=== PATIENT | female | born 1950 | race Two or more races ===

== ENCOUNTER 2021-05-08 07:35 | Emergency (ER) | payer OTHER ==
[2021-05-08 07:55] VITALS: BP 141/94; PULSE 80; TEMP 98.4; BMI 28.0
[2021-05-08] MEDS ORDERED: FUROSEMIDE 40 MG/4 ML INJECTABLE VIAL IVPUSH ONE (09:11)
[2021-05-08] MEDS ORDERED: FUROSEMIDE 40 MG TABLET (FP) PO ONE (09:12)
[2021-05-08] MEDS ORDERED: FUROSEMIDE 40 MG TABLET (FP) ONE (09:17)
[2021-05-08 10:41] LABS: EOS % 1.3 % (0-4.5); HEMATOCRIT 44.2 % (32.4-45.2); HEMOGLOBIN 14.4 GM/dL (10.7-15.3); LYMPH % 48.2 % (8-40); MCH 30.3 pg (25.7-33.7); MCHC 32.5 g/dl (32.0-36.0); MEAN PLT VOLUME 10.1 fl (7.5-11.1); MONO % 10.6 % (3.8-10.2); NEUT % 38.9 % (42.8-82.8); PLATELET COUNT 222 10^3/uL (134-434); RBC 4.75 M/mm3 (3.60-5.2); RDW 13.6 % (11.6-15.6); WHITE BLOOD COUNT 3.8 K/mm3 (4.0-10.0)
[2021-05-08 11:04] LABS: CALCIUM 9.5 mg/dL (8.5-10.1)
[2021-05-08 11:05] LABS: ALBUMIN 4.1 g/dl (3.4-5.0); BLOOD UREA NITROGEN 11.7 mg/dL (7-18); MAGNESIUM 2.1 mg/dL (1.8-2.4)
[2021-05-08 11:08] LABS: CREATININE 0.9 mg/dL (0.55-1.3)
[2021-05-08 11:09] LABS: EPI CELLS >36 /uL (0-25.1); HYALINE CASTS 3 /uL (0-3.1); PH,URINE 6.5 (5.0-8.0); URINE APPEARANCE CLOUDY; URINE BACTERIA 2070 /uL (0-1359); URINE BILIRUBIN NEGATIVE (NEGATIVE); URINE COLOR YELLOW; URINE GLUCOSE (UA) NEGATIVE (NEGATIVE); URINE KETONE TRACE (NEGATIVE); URINE LEUK ESTERASE 2+ (NEGATIVE); URINE NITRITE NEGATIVE (NEGATIVE); URINE PROTEIN TRACE (NEGATIVE); URINE WBC 148 /uL (0-25.8)
[2021-05-08 11:10] LABS: BILIRUBIN,TOTAL 2.5 mg/dL (0.2-1); TOT PROT 7.6 g/dl (6.4-8.2)
[2021-05-08 11:12] LABS: N-TERMINAL BNP 45.9 pg/ml (5-125)
[2021-05-08 11:16] LABS: URINE RBC 28.4 /uL (0-23.9)
== END 2021-05-08 11:53 | disposition home or self-care (01) ==
LOC: JER 07:35
DX: R22.43 Localized swelling, mass and lump, lower limb, bilateral (principal)
CPT/HCPCS: 80053; 81003; 82550; 82553; 83735; 83880; 84484; 85025; 87086; 87186; 93005; 93010; 99285-25; C9803; U0003; U0005

== ENCOUNTER 2021-09-01 21:46 | Inpatient (IN) | payer OTHER ==
[2021-09-01 23:55] LABS: BASO % 0.6 % (0-2.0); EOS % 0.3 % (0-4.5); HEMATOCRIT 41.9 % (32.4-45.2); HEMOGLOBIN 14.2 GM/dL (10.7-15.3); LYMPH % 5.5 % (8-40); MCH 31.4 pg (25.7-33.7); MEAN CELL VOLUME 92.3 fl (80-96); MEAN PLT VOLUME 9.8 fl (7.5-11.1); MONO % 12.1 % (3.8-10.2); NEUT % 81.5 % (42.8-82.8); PLATELET COUNT 170 10^3/uL (134-434); RBC 4.54 M/mm3 (3.60-5.2); RDW 14.1 % (11.6-15.6); WHITE BLOOD COUNT 7.1 K/mm3 (4.0-10.0)
[2021-09-02 00:14] LABS: ALBUMIN 3.9 g/dl (3.4-5.0); CALCIUM 9.8 mg/dL (8.5-10.1)
[2021-09-02 00:15] LABS: BLOOD UREA NITROGEN 16.2 mg/dL (7-18)
[2021-09-02 00:17] LABS: CREATININE 0.9 mg/dL (0.55-1.3)
[2021-09-02 00:18] LABS: BILIRUBIN,TOTAL 2.1 mg/dL (0.2-1); TOT PROT 7.5 g/dl (6.4-8.2)
[2021-09-02] MEDS ORDERED: ACETAMINOPHEN 1000 MG/100 ML BAG IVPB ONE (00:37)
[2021-09-02] MEDS ORDERED: ACETAMINOPHEN INJECTION 100 ML IVPB ONE (01:03)
[2021-09-02] MEDS ORDERED: ASPIRIN 81 MG CHEWABLE TABLETS PO ONE (04:15)
[2021-09-02] MEDS ORDERED: BEBTELOVIMAB (EUA) 175 MG/2 ML VIAL IVPUSH ONE (04:19)
[2021-09-02] MEDS ORDERED: ASPIRIN 81 MG CHEWABLE TABLETS ONE (04:24)
[2021-09-02 05:36] LABS: ACTIVATED PTT 30.7 SECONDS (25.2-36.5); INR 1.13 (0.83-1.09)
[2021-09-02 07:35] LABS: BASO % 0.8 % (0-2.0); EOS % 0.2 % (0-4.5); HEMATOCRIT 38.8 % (32.4-45.2); HEMOGLOBIN 12.8 GM/dL (10.7-15.3); LYMPH % 15.6 % (8-40); MCH 30.6 pg (25.7-33.7); MCHC 33.1 g/dl (32.0-36.0); MEAN CELL VOLUME 92.6 fl (80-96); MEAN PLT VOLUME 10.8 fl (7.5-11.1); MONO % 7.5 % (3.8-10.2); NEUT % 75.9 % (42.8-82.8); PLATELET COUNT 157 10^3/uL (134-434); RBC 4.19 M/mm3 (3.60-5.2); RDW 14.3 % (11.6-15.6); WHITE BLOOD COUNT 4.3 K/mm3 (4.0-10.0)
[2021-09-02] MEDS: INSULIN SLIDING SCALE (NOVOLOG) 1 VIAL SQ SCH ×4 (08:00→22:17)
[2021-09-02 08:06] LABS: BLOOD UREA NITROGEN 15.8 mg/dL (7-18); CALCIUM 9.1 mg/dL (8.5-10.1)
[2021-09-02 08:07] LABS: ALBUMIN 3.5 g/dl (3.4-5.0)
[2021-09-02 08:10] LABS: CREATININE 0.8 mg/dL (0.55-1.3); MAGNESIUM 1.9 mg/dL (1.8-2.4)
[2021-09-02 08:12] LABS: BILIRUBIN,TOTAL 2.1 mg/dL (0.2-1); TOT PROT 6.6 g/dl (6.4-8.2)
[2021-09-02 09:25] LABS: EPI CELLS >36 /uL (0-25.1); HYALINE CASTS 4 /uL (0-3.1); URINE APPEARANCE CLOUDY; URINE BACTERIA 3807 /uL (0-1359); URINE BILIRUBIN NEGATIVE (NEGATIVE); URINE COLOR YELLOW; URINE GLUCOSE (UA) NEGATIVE (NEGATIVE); URINE KETONE NEGATIVE (NEGATIVE); URINE LEUK ESTERASE TRACE (NEGATIVE); URINE NITRITE NEGATIVE (NEGATIVE); URINE PROTEIN 1+ (NEGATIVE); URINE WBC 167 /uL (0-25.8)
[2021-09-02] MEDS ORDERED: PATIENT'S OWN MEDICATION (NON-FORMULARY) (Dorzolamide Hcl/Timolol Maleat [Dorzolamide-Timo OU SCH (10:00)
[2021-09-02 10:29] LABS: URINE RBC 58 /uL (0-23.9)
[2021-09-02] MEDS ORDERED: SODIUM CHLORIDE 1,000 ML IV SCH (10:30)
[2021-09-02] MEDS: ENOXAPARIN NA (PORCINE) 40 MG/0.4 ML DISP.SYRIN SQ SCH (13:00)
[2021-09-02] MEDS: TIMOLOL 0.5% OPHTHALMIC SOL 5 ML BOTTLE OU SCH ×2 (13:00→22:12)
[2021-09-02] MEDS: BRIMONIDINE TARTRATE 0.15% OPHTHALMIC 5 ML BOTTLE OU SCH ×2 (13:00→22:12)
[2021-09-02] MEDS: GABAPENTIN 300 MG CAPSULE PO SCH (13:00)
[2021-09-02] MEDS ORDERED: hydrALAZINE HCL 50 MG TABLET (FP) ONE (13:13)
[2021-09-02] MEDS ORDERED: LOSARTAN POTASSIUM 50 MG TABLET ONE (13:13)
[2021-09-02] MEDS ORDERED: GABAPENTIN 300 MG CAPSULE ONE (13:13)
[2021-09-02] MEDS ORDERED: ENOXAPARIN NA (PORCINE) 40 MG/0.4 ML DISP.SYRIN SQ ONE (13:13)
[2021-09-02] MEDS ORDERED: amLODIPine BESYLATE 5 MG TABLET (FP) ONE (13:13)
[2021-09-02] MEDS: LOSARTAN POTASSIUM 50 MG TABLET PO SCH (13:56)
[2021-09-02] MEDS: hydrALAZINE HCL 50 MG TABLET (FP) PO SCH (13:56)
[2021-09-02] MEDS: amLODIPine BESYLATE 10 MG TABLET (FP) PO SCH (13:57)
[2021-09-02] MEDS: DORZOLAMIDE 2% HCL OPHTHALMIC SOLUTION 10 ML BOTTLE OU SCH ×2 (13:58→22:12)
[2021-09-02] MEDS ORDERED: REMDESIVIR 200 MG in SODIUM CHLORIDE 250 ML IVPB ONE (17:30)
[2021-09-02] MEDS ORDERED: DEXAMETHASONE SOD PHOSPHATE 10 MG/1 ML VIAL ONE (17:53)
[2021-09-02] MEDS: SODIUM CHLORIDE 1,000 ML IV SCH (18:00)
[2021-09-02] MEDS: DEXAMETHASONE SOD PHOSPHATE 10 MG/1 ML VIAL IVPUSH SCH (18:00)
[2021-09-03] MEDS: ROSUVASTATIN CA 20 MG TABLET PO SCH ×2 (00:03→22:00)
[2021-09-03 00:38] VITALS: BMI 27.1
[2021-09-03] MEDS: INSULIN SLIDING SCALE (NOVOLOG) 1 VIAL SQ SCH ×4 (06:26→22:06)
[2021-09-03 08:18] LABS: BASO % 0.3 % (0-2.0); HEMATOCRIT 39.7 % (32.4-45.2); HEMOGLOBIN 13.2 GM/dL (10.7-15.3); LYMPH % 25.8 % (8-40); MCH 30.9 pg (25.7-33.7); MCHC 33.1 g/dl (32.0-36.0); MEAN CELL VOLUME 93.3 fl (80-96); MEAN PLT VOLUME 10.3 fl (7.5-11.1); MONO % 4.4 % (3.8-10.2); NEUT % 69.5 % (42.8-82.8); PLATELET COUNT 152 10^3/uL (134-434); RBC 4.26 M/mm3 (3.60-5.2); RDW 13.9 % (11.6-15.6); WHITE BLOOD COUNT 4.9 K/mm3 (4.0-10.0)
[2021-09-03 09:00] LABS: ALBUMIN 3.2 g/dl (3.4-5.0); BILIRUBIN,TOTAL 1.6 mg/dL (0.2-1); CALCIUM 8.7 mg/dL (8.5-10.1); CREATININE 0.7 mg/dL (0.55-1.3); TOT PROT 6.3 g/dl (6.4-8.2)
[2021-09-03] MEDS: BRIMONIDINE TARTRATE 0.15% OPHTHALMIC 5 ML BOTTLE OU SCH ×2 (09:01→22:06)
[2021-09-03] MEDS: DEXAMETHASONE SOD PHOSPHATE 10 MG/1 ML VIAL IVPUSH SCH (09:01)
[2021-09-03] MEDS: GABAPENTIN 300 MG CAPSULE PO SCH (09:01)
[2021-09-03] MEDS: TIMOLOL 0.5% OPHTHALMIC SOL 5 ML BOTTLE OU SCH ×2 (09:01→22:07)
[2021-09-03] MEDS: DORZOLAMIDE 2% HCL OPHTHALMIC SOLUTION 10 ML BOTTLE OU SCH ×2 (09:01→22:07)
[2021-09-03] MEDS: ENOXAPARIN NA (PORCINE) 40 MG/0.4 ML DISP.SYRIN SQ SCH (09:01)
[2021-09-03 09:02] LABS: BILIRUBIN,DIRECT 0.4 mg/dL (0.0-0.2); PHOSPHOROUS 3.8 mg/dL (2.5-4.9)
[2021-09-03] MEDS: REMDESIVIR 100 MG in SODIUM CHLORIDE 250 ML IVPB SCH (10:07)
[2021-09-03] MEDS: LOSARTAN POTASSIUM 50 MG TABLET PO SCH (10:08)
[2021-09-03] MEDS: amLODIPine BESYLATE 10 MG TABLET (FP) PO SCH (10:08)
[2021-09-03] MEDS: hydrALAZINE HCL 50 MG TABLET (FP) PO SCH ×2 (10:09→22:00)
[2021-09-03] MEDS: SODIUM CHLORIDE 1,000 ML IV SCH (17:15)
[2021-09-04] MEDS: INSULIN SLIDING SCALE (NOVOLOG) 1 VIAL SQ SCH (06:12)
[2021-09-04 08:25] LABS: BASO % 0.1 % (0-2.0); HEMATOCRIT 39.2 % (32.4-45.2); HEMOGLOBIN 13.5 GM/dL (10.7-15.3); LYMPH % 23.3 % (8-40); MCH 31.7 pg (25.7-33.7); MCHC 34.3 g/dl (32.0-36.0); MEAN CELL VOLUME 92.5 fl (80-96); MEAN PLT VOLUME 10.1 fl (7.5-11.1); MONO % 9.9 % (3.8-10.2); NEUT % 66.7 % (42.8-82.8); PLATELET COUNT 155 10^3/uL (134-434); RBC 4.24 M/mm3 (3.60-5.2); RDW 13.9 % (11.6-15.6); WHITE BLOOD COUNT 6.9 K/mm3 (4.0-10.0)
[2021-09-04 08:32] LABS: CALCIUM 8.8 mg/dL (8.5-10.1)
[2021-09-04 08:33] LABS: ALBUMIN 3.2 g/dl (3.4-5.0); BLOOD UREA NITROGEN 16.4 mg/dL (7-18); MAGNESIUM 2.2 mg/dL (1.8-2.4)
[2021-09-04 08:36] LABS: CREATININE 0.7 mg/dL (0.55-1.3); PHOSPHOROUS 3.2 mg/dL (2.5-4.9)
[2021-09-04 08:37] LABS: BILIRUBIN,TOTAL 1.1 mg/dL (0.2-1); TOT PROT 6.4 g/dl (6.4-8.2)
[2021-09-04] MEDS: SODIUM CHLORIDE 1,000 ML IV SCH ×2 (11:31→21:16)
[2021-09-04] MEDS: REMDESIVIR 100 MG in SODIUM CHLORIDE 250 ML IVPB SCH (11:31)
[2021-09-04] MEDS: DEXAMETHASONE SOD PHOSPHATE 10 MG/1 ML VIAL IVPUSH SCH (11:32)
[2021-09-04] MEDS: GABAPENTIN 300 MG CAPSULE PO SCH (11:32)
[2021-09-04] MEDS: LOSARTAN POTASSIUM 50 MG TABLET PO SCH (11:32)
[2021-09-04] MEDS: hydrALAZINE HCL 50 MG TABLET (FP) PO SCH ×2 (11:32→21:15)
[2021-09-04] MEDS: amLODIPine BESYLATE 10 MG TABLET (FP) PO SCH (11:32)
[2021-09-04] MEDS: ENOXAPARIN NA (PORCINE) 40 MG/0.4 ML DISP.SYRIN SQ SCH (11:33)
[2021-09-04] MEDS: DORZOLAMIDE 2% HCL OPHTHALMIC SOLUTION 10 ML BOTTLE OU SCH ×2 (11:34→21:21)
[2021-09-04] MEDS: TIMOLOL 0.5% OPHTHALMIC SOL 5 ML BOTTLE OU SCH ×2 (11:34→21:20)
[2021-09-04] MEDS: BRIMONIDINE TARTRATE 0.15% OPHTHALMIC 5 ML BOTTLE OU SCH ×2 (11:34→21:20)
[2021-09-04] MEDS ORDERED: ACETAMINOPHEN 325 MG TABLET (FP) PO PRN (20:57)
[2021-09-04] MEDS: ROSUVASTATIN CA 20 MG TABLET PO SCH (21:15)
[2021-09-05 07:58] LABS: BASO % 0.1 % (0-2.0); HEMATOCRIT 40.2 % (32.4-45.2); HEMOGLOBIN 13.9 GM/dL (10.7-15.3); LYMPH % 19.3 % (8-40); MCH 31.7 pg (25.7-33.7); MCHC 34.6 g/dl (32.0-36.0); MEAN CELL VOLUME 91.7 fl (80-96); MEAN PLT VOLUME 10.3 fl (7.5-11.1); MONO % 9.3 % (3.8-10.2); NEUT % 71.3 % (42.8-82.8); PLATELET COUNT 176 10^3/uL (134-434); RBC 4.39 M/mm3 (3.60-5.2); RDW 13.7 % (11.6-15.6); WHITE BLOOD COUNT 6.5 K/mm3 (4.0-10.0)
[2021-09-05 08:09] LABS: ALBUMIN 3.2 g/dl (3.4-5.0)
[2021-09-05 08:12] LABS: BLOOD UREA NITROGEN 14.6 mg/dL (7-18); CALCIUM 8.7 mg/dL (8.5-10.1); MAGNESIUM 2.2 mg/dL (1.8-2.4); PHOSPHOROUS 3.2 mg/dL (2.5-4.9)
[2021-09-05 08:15] LABS: CREATININE 0.6 mg/dL (0.55-1.3)
[2021-09-05 08:17] LABS: BILIRUBIN,TOTAL 1.3 mg/dL (0.2-1); TOT PROT 6.5 g/dl (6.4-8.2)
[2021-09-05] MEDS: DEXAMETHASONE SOD PHOSPHATE 10 MG/1 ML VIAL IVPUSH SCH (10:28)
[2021-09-05] MEDS: LOSARTAN POTASSIUM 50 MG TABLET PO SCH (10:29)
[2021-09-05] MEDS: hydrALAZINE HCL 50 MG TABLET (FP) PO SCH ×2 (10:29→21:45)
[2021-09-05] MEDS: amLODIPine BESYLATE 10 MG TABLET (FP) PO SCH (10:29)
[2021-09-05] MEDS: GABAPENTIN 300 MG CAPSULE PO SCH (10:29)
[2021-09-05] MEDS: ENOXAPARIN NA (PORCINE) 40 MG/0.4 ML DISP.SYRIN SQ SCH (10:29)
[2021-09-05] MEDS: SODIUM CHLORIDE 1,000 ML IV SCH ×2 (10:30→21:44)
[2021-09-05] MEDS: BRIMONIDINE TARTRATE 0.15% OPHTHALMIC 5 ML BOTTLE OU SCH ×2 (10:31→21:49)
[2021-09-05] MEDS: DORZOLAMIDE 2% HCL OPHTHALMIC SOLUTION 10 ML BOTTLE OU SCH ×2 (10:31→21:47)
[2021-09-05] MEDS: TIMOLOL 0.5% OPHTHALMIC SOL 5 ML BOTTLE OU SCH ×2 (10:31→21:47)
[2021-09-05] MEDS: REMDESIVIR 100 MG in SODIUM CHLORIDE 250 ML IVPB SCH (11:12)
[2021-09-05] MEDS: POLYETHYLENE GLYCOL (HEALTHYLAX) 3350 17 GM PACKET PO SCH (14:17)
[2021-09-05] MEDS: ROSUVASTATIN CA 20 MG TABLET PO SCH (21:45)
[2021-09-05] MEDS: SENNOSIDES 8.6MG TABLET (FP) PO SCH (21:45)
[2021-09-06 07:31] LABS: BASO % 0.2 % (0-2.0); HEMATOCRIT 42.5 % (32.4-45.2); HEMOGLOBIN 14.2 GM/dL (10.7-15.3); LYMPH % 21.5 % (8-40); MCH 30.9 pg (25.7-33.7); MCHC 33.5 g/dl (32.0-36.0); MEAN CELL VOLUME 92.1 fl (80-96); MEAN PLT VOLUME 10.7 fl (7.5-11.1); NEUT % 66.3 % (42.8-82.8); PLATELET COUNT 195 10^3/uL (134-434); RBC 4.61 M/mm3 (3.60-5.2); RDW 13.7 % (11.6-15.6); WHITE BLOOD COUNT 6.5 K/mm3 (4.0-10.0)
[2021-09-06 07:46] LABS: ALBUMIN 3.1 g/dl (3.4-5.0); CALCIUM 8.6 mg/dL (8.5-10.1)
[2021-09-06 07:49] LABS: CREATININE 0.7 mg/dL (0.55-1.3)
[2021-09-06 07:51] LABS: TOT PROT 6.4 g/dl (6.4-8.2)
[2021-09-06] MEDS: amLODIPine BESYLATE 10 MG TABLET (FP) PO SCH (10:10)
[2021-09-06] MEDS: POLYETHYLENE GLYCOL (HEALTHYLAX) 3350 17 GM PACKET PO SCH (10:10)
[2021-09-06] MEDS: LOSARTAN POTASSIUM 50 MG TABLET PO SCH (10:10)
[2021-09-06] MEDS: GABAPENTIN 300 MG CAPSULE PO SCH (10:10)
[2021-09-06] MEDS: hydrALAZINE HCL 50 MG TABLET (FP) PO SCH ×2 (10:10→21:48)
[2021-09-06] MEDS: DEXAMETHASONE SOD PHOSPHATE 10 MG/1 ML VIAL IVPUSH SCH (10:10)
[2021-09-06] MEDS: REMDESIVIR 100 MG in SODIUM CHLORIDE 250 ML IVPB SCH (10:10)
[2021-09-06] MEDS: DORZOLAMIDE 2% HCL OPHTHALMIC SOLUTION 10 ML BOTTLE OU SCH ×2 (10:10→21:49)
[2021-09-06] MEDS: TIMOLOL 0.5% OPHTHALMIC SOL 5 ML BOTTLE OU SCH ×2 (10:10→21:49)
[2021-09-06] MEDS: BRIMONIDINE TARTRATE 0.15% OPHTHALMIC 5 ML BOTTLE OU SCH ×2 (11:05→21:49)
[2021-09-06] MEDS: ENOXAPARIN NA (PORCINE) 40 MG/0.4 ML DISP.SYRIN SQ SCH (11:05)
[2021-09-06] MEDS: INSULIN SLIDING SCALE (NOVOLOG) 1 VIAL SQ SCH ×3 (12:24→21:55)
[2021-09-06] MEDS: ROSUVASTATIN CA 20 MG TABLET PO SCH (21:48)
[2021-09-06] MEDS: SENNOSIDES 8.6MG TABLET (FP) PO SCH (21:48)
[2021-09-07] MEDS: INSULIN SLIDING SCALE (NOVOLOG) 1 VIAL SQ SCH ×4 (06:11→21:56)
[2021-09-07 07:37] LABS: BASO % 0.1 % (0-2.0); EOS % 0.1 % (0-4.5); HEMATOCRIT 43.9 % (32.4-45.2); HEMOGLOBIN 14.5 GM/dL (10.7-15.3); LYMPH % 23.8 % (8-40); MCH 30.6 pg (25.7-33.7); MCHC 33.1 g/dl (32.0-36.0); MEAN CELL VOLUME 92.4 fl (80-96); MEAN PLT VOLUME 10.4 fl (7.5-11.1); MONO % 13.8 % (3.8-10.2); NEUT % 62.2 % (42.8-82.8); PLATELET COUNT 210 10^3/uL (134-434); RBC 4.75 M/mm3 (3.60-5.2); RDW 13.9 % (11.6-15.6); WHITE BLOOD COUNT 6.3 K/mm3 (4.0-10.0)
[2021-09-07 08:12] LABS: CALCIUM 9.1 mg/dL (8.5-10.1)
[2021-09-07 08:15] LABS: CREATININE 0.6 mg/dL (0.55-1.3)
[2021-09-07 08:17] LABS: TOT PROT 6.3 g/dl (6.4-8.2)
[2021-09-07] MEDS: BRIMONIDINE TARTRATE 0.15% OPHTHALMIC 5 ML BOTTLE OU SCH ×2 (10:12→21:45)
[2021-09-07] MEDS: TIMOLOL 0.5% OPHTHALMIC SOL 5 ML BOTTLE OU SCH ×2 (10:12→21:46)
[2021-09-07] MEDS: DORZOLAMIDE 2% HCL OPHTHALMIC SOLUTION 10 ML BOTTLE OU SCH ×2 (10:12→21:46)
[2021-09-07] MEDS: ENOXAPARIN NA (PORCINE) 40 MG/0.4 ML DISP.SYRIN SQ SCH (10:53)
[2021-09-07] MEDS: LOSARTAN POTASSIUM 50 MG TABLET PO SCH (10:53)
[2021-09-07] MEDS: hydrALAZINE HCL 50 MG TABLET (FP) PO SCH ×2 (10:54→21:45)
[2021-09-07] MEDS: amLODIPine BESYLATE 10 MG TABLET (FP) PO SCH (10:54)
[2021-09-07] MEDS: POLYETHYLENE GLYCOL (HEALTHYLAX) 3350 17 GM PACKET PO SCH (10:55)
[2021-09-07] MEDS: GABAPENTIN 300 MG CAPSULE PO SCH (10:55)
[2021-09-07] MEDS: DEXAMETHASONE SOD PHOSPHATE 10 MG/1 ML VIAL IVPUSH SCH (10:56)
[2021-09-07] MEDS: ROSUVASTATIN CA 20 MG TABLET PO SCH (21:45)
[2021-09-07] MEDS: SENNOSIDES 8.6MG TABLET (FP) PO SCH (21:45)
[2021-09-08] MEDS: INSULIN SLIDING SCALE (NOVOLOG) 1 VIAL SQ SCH ×4 (06:32→23:01)
[2021-09-08] MEDS: ENOXAPARIN NA (PORCINE) 40 MG/0.4 ML DISP.SYRIN SQ SCH (10:25)
[2021-09-08] MEDS: amLODIPine BESYLATE 10 MG TABLET (FP) PO SCH (10:25)
[2021-09-08] MEDS: GABAPENTIN 300 MG CAPSULE PO SCH (10:26)
[2021-09-08] MEDS: LOSARTAN POTASSIUM 50 MG TABLET PO SCH (10:26)
[2021-09-08] MEDS: hydrALAZINE HCL 50 MG TABLET (FP) PO SCH ×2 (10:26→22:38)
[2021-09-08] MEDS: DEXAMETHASONE SOD PHOSPHATE 10 MG/1 ML VIAL IVPUSH SCH (10:26)
[2021-09-08] MEDS: BRIMONIDINE TARTRATE 0.15% OPHTHALMIC 5 ML BOTTLE OU SCH ×2 (10:28→23:02)
[2021-09-08] MEDS: POLYETHYLENE GLYCOL (HEALTHYLAX) 3350 17 GM PACKET PO SCH (10:29)
[2021-09-08] MEDS: TIMOLOL 0.5% OPHTHALMIC SOL 5 ML BOTTLE OU SCH ×2 (10:30→23:01)
[2021-09-08] MEDS: DORZOLAMIDE 2% HCL OPHTHALMIC SOLUTION 10 ML BOTTLE OU SCH ×2 (10:30→23:02)
[2021-09-08] MEDS: ROSUVASTATIN CA 20 MG TABLET PO SCH (22:38)
[2021-09-08] MEDS: SENNOSIDES 8.6MG TABLET (FP) PO SCH (22:38)
[2021-09-09] MEDS: INSULIN SLIDING SCALE (NOVOLOG) 1 VIAL SQ SCH ×4 (08:00→21:44)
[2021-09-09] MEDS: POLYETHYLENE GLYCOL (HEALTHYLAX) 3350 17 GM PACKET PO SCH (10:42)
[2021-09-09] MEDS: DEXAMETHASONE SOD PHOSPHATE 10 MG/1 ML VIAL IVPUSH SCH (10:42)
[2021-09-09] MEDS: hydrALAZINE HCL 50 MG TABLET (FP) PO SCH ×2 (10:43→21:43)
[2021-09-09] MEDS: amLODIPine BESYLATE 10 MG TABLET (FP) PO SCH (10:43)
[2021-09-09] MEDS: LOSARTAN POTASSIUM 50 MG TABLET PO SCH (10:43)
[2021-09-09] MEDS: GABAPENTIN 300 MG CAPSULE PO SCH (10:43)
[2021-09-09] MEDS: BRIMONIDINE TARTRATE 0.15% OPHTHALMIC 5 ML BOTTLE OU SCH ×2 (11:00→21:46)
[2021-09-09] MEDS: TIMOLOL 0.5% OPHTHALMIC SOL 5 ML BOTTLE OU SCH ×2 (11:00→21:44)
[2021-09-09] MEDS: DORZOLAMIDE 2% HCL OPHTHALMIC SOLUTION 10 ML BOTTLE OU SCH ×2 (11:05→21:44)
[2021-09-09] MEDS: ASCORBIC ACID 250 MG TABLET (FP) PO SCH (15:00)
[2021-09-09] MEDS: ZINC SULFATE 220 MG CAPSULE (FP) PO SCH (15:00)
[2021-09-09 16:26] LABS: SARS-CoV-2 NAA Detected (Not Detected)
[2021-09-09] MEDS: ROSUVASTATIN CA 20 MG TABLET PO SCH (21:43)
[2021-09-09] MEDS: SENNOSIDES 8.6MG TABLET (FP) PO SCH (21:43)
[2021-09-10] MEDS: INSULIN SLIDING SCALE (NOVOLOG) 1 VIAL SQ SCH ×3 (06:04→17:50)
[2021-09-10] MEDS ORDERED: BISACODYL 10 MG SUPP.RECT PR ONE (08:30)
[2021-09-10] MEDS: BRIMONIDINE TARTRATE 0.15% OPHTHALMIC 5 ML BOTTLE OU SCH (10:01)
[2021-09-10] MEDS: TIMOLOL 0.5% OPHTHALMIC SOL 5 ML BOTTLE OU SCH (10:01)
[2021-09-10] MEDS: DORZOLAMIDE 2% HCL OPHTHALMIC SOLUTION 10 ML BOTTLE OU SCH (10:02)
[2021-09-10] MEDS: GABAPENTIN 300 MG CAPSULE PO SCH (10:50)
[2021-09-10] MEDS: POLYETHYLENE GLYCOL (HEALTHYLAX) 3350 17 GM PACKET PO SCH (10:50)
[2021-09-10] MEDS: LOSARTAN POTASSIUM 50 MG TABLET PO SCH (10:50)
[2021-09-10] MEDS: amLODIPine BESYLATE 10 MG TABLET (FP) PO SCH (10:51)
[2021-09-10] MEDS: ZINC SULFATE 220 MG CAPSULE (FP) PO SCH (10:51)
[2021-09-10] MEDS: ASCORBIC ACID 250 MG TABLET (FP) PO SCH (10:51)
[2021-09-10] MEDS: hydrALAZINE HCL 50 MG TABLET (FP) PO SCH (10:51)
[2021-09-10 20:02] VITALS: BP 122/74; PULSE 91; TEMP 98.5
== END 2021-09-10 20:00 | DRG 177 ==
LOC: JER 21:46 → JERBED 09-02 01:43 → J4W 09-02 23:37
PROVIDERS: ADMIT Hospitalist; ATTEND Internal Medicine
PROC: XW033E5 Introduction of Remdesivir Anti-infective into Peripheral Vein, Percutaneous Approach, New Technology Group 5 (ICD-10-PCS; principal; 2021-09-02)
DX: U07.1 COVID-19 (principal); J12.82 Pneumonia due to coronavirus disease 2019; I24.8 Other forms of acute ischemic heart disease; M62.82 Rhabdomyolysis; R78.81 Bacteremia; G20 Parkinson's disease; I10 Essential (primary) hypertension; E78.5 Hyperlipidemia, unspecified; H40.9 Unspecified glaucoma
CPT/HCPCS: 0241U-QW; 36415; 71045-TC-FY; 80053; 81003; 82248; 82550; 82553; 82728; 82962; 83036; 83605; 83615; 83735; 84100; 84443; 84484; 85025; 85379; 85610; 85730; 86140; 86850; 86900; 86901; 87040; 87086; 87186; 93005; 93010; 94761; 97116-GP; 97162-GP; 99285-25; C9399; C9803-CS; J1100; Q0222; U0003; U0005

== ENCOUNTER 2022-02-09 10:47 | Inpatient (IN) | payer OTHER ==
[2022-02-09] MEDS ORDERED: VANCOMYCIN 1 GM in D5W (PRE-DOCKED) 1,000 MG/250 ML IVPB ONE (13:40)
[2022-02-09 14:24] LABS: BASO % 1.1 % (0-2.0); EOS % 1.8 % (0-4.5); HEMATOCRIT 41.3 % (32.4-45.2); HEMOGLOBIN 13.8 GM/dL (10.7-15.3); LYMPH % 26.1 % (8-40); MCH 30.8 pg (25.7-33.7); MCHC 33.5 g/dl (32.0-36.0); MEAN PLT VOLUME 9.9 fl (7.5-11.1); MONO % 14.3 % (3.8-10.2); NEUT % 56.7 % (42.8-82.8); PLATELET COUNT 163 10^3/uL (134-434); RBC 4.49 M/mm3 (3.60-5.2); RDW 14.3 % (11.6-15.6); WHITE BLOOD COUNT 5.9 K/mm3 (4.0-10.0)
[2022-02-09 14:46] LABS: CHLORIDE 110 mmol/L (98-107); SODIUM 143 mmol/L (136-145)
[2022-02-09 14:48] LABS: ALBUMIN 3.5 g/dl (3.4-5.0); ANION GAP 6 MMOL/L (8-16); BLOOD UREA NITROGEN 14.6 mg/dL (7-18); CALCIUM 9.5 mg/dL (8.5-10.1); CO2 28 mmol/L (21-32)
[2022-02-09 14:49] LABS: GLUCOSE,RANDOM 103 mg/dL (74-106)
[2022-02-09 14:51] LABS: CREATININE 0.9 mg/dL (0.55-1.3); SGOT/AST 8 U/L (15-37); SGPT/ALT 19 U/L (13-61)
[2022-02-09 14:53] LABS: BILIRUBIN,TOTAL 2.5 mg/dL (0.2-1); TOT PROT 6.7 g/dl (6.4-8.2)
[2022-02-09 14:54] LABS: ALK PHOS 66 U/L (45-117)
[2022-02-09] MEDS ORDERED: VANCOMYCIN/WATER FOR INJ (PEG) 1,000 MG/200 ML BAG IVPB ONE (16:30)
[2022-02-09] MEDS: ASPIRIN 81 MG CHEWABLE TABLETS PO SCH (19:02)
[2022-02-09] MEDS: INSULIN SLIDING SCALE (NOVOLOG) 1 VIAL SQ SCH (22:07)
[2022-02-10] MEDS: METOPROLOL TARTRATE 25 MG TABLET (FP) PO SCH ×3 (01:59→22:47)
[2022-02-10] MEDS: INSULIN SLIDING SCALE (NOVOLOG) 1 VIAL SQ SCH ×4 (06:52→21:56)
[2022-02-10] MEDS: ASPIRIN 81 MG CHEWABLE TABLETS PO SCH (09:18)
[2022-02-10] MEDS: amLODIPine BESYLATE 10 MG TABLET (FP) PO SCH (09:20)
[2022-02-10] MEDS: LOSARTAN POTASSIUM 50 MG TABLET PO SCH (09:20)
[2022-02-10] MEDS ORDERED: AMPICILLIN NA/SULBACTAM NA 1.5 GM in SODIUM CHLORIDE 100 ML IVPB SCH (10:45)
[2022-02-10] MEDS: VANCOMYCIN/WATER FOR INJ (PEG) 1,000 MG/200 ML BAG IVPB SCH ×2 (11:24→22:47)
[2022-02-10] MEDS: AMPICILLIN NA/SULBACTAM NA 1.5 GM in SODIUM CHLORIDE 100 ML IVPB SCH ×2 (14:18→21:58)
[2022-02-10 15:05] VITALS: RESP 18
[2022-02-10 18:50] LABS: PH,URINE 5.5 (5.0-8.0); URINE APPEARANCE CLEAR; URINE BILIRUBIN NEGATIVE (NEGATIVE); URINE COLOR YELLOW; URINE GLUCOSE (UA) NEGATIVE (NEGATIVE); URINE KETONE NEGATIVE (NEGATIVE); URINE LEUK ESTERASE NEGATIVE (NEGATIVE); URINE NITRITE NEGATIVE (NEGATIVE); URINE PROTEIN TRACE (NEGATIVE)
[2022-02-10] MEDS ORDERED: INSULIN (NOVOLOG) ASPART 100 UNITS/ML 10ML VIAL ONE (21:17)
[2022-02-11] MEDS: AMPICILLIN NA/SULBACTAM NA 1.5 GM in SODIUM CHLORIDE 100 ML IVPB SCH ×4 (02:38→21:22)
[2022-02-11] MEDS: INSULIN SLIDING SCALE (NOVOLOG) 1 VIAL SQ SCH ×4 (06:32→21:28)
[2022-02-11] MEDS: amLODIPine BESYLATE 10 MG TABLET (FP) PO SCH (09:14)
[2022-02-11] MEDS: ASPIRIN 81 MG CHEWABLE TABLETS PO SCH (09:14)
[2022-02-11] MEDS: LOSARTAN POTASSIUM 50 MG TABLET PO SCH (09:15)
[2022-02-11] MEDS: METOPROLOL TARTRATE 25 MG TABLET (FP) PO SCH ×2 (09:15→21:30)
[2022-02-11] MEDS: VANCOMYCIN/WATER FOR INJ (PEG) 1,000 MG/200 ML BAG IVPB SCH (10:20)
[2022-02-11 12:38] VITALS: BMI 25.5
[2022-02-11] MEDS ORDERED: SODIUM CHLORIDE 0.45% 1,000 ML IV SCH (12:45)
[2022-02-11] MEDS ORDERED: INSULIN (NOVOLOG) ASPART 100 UNITS/ML 10ML VIAL ONE (21:09)
[2022-02-11] MEDS: ROSUVASTATIN CA 20 MG TABLET PO SCH (21:30)
[2022-02-12] MEDS: VANCOMYCIN/WATER FOR INJ (PEG) 1,000 MG/200 ML BAG IVPB SCH ×3 (00:01→22:31)
[2022-02-12] MEDS: AMPICILLIN NA/SULBACTAM NA 1.5 GM in SODIUM CHLORIDE 100 ML IVPB SCH ×4 (05:45→21:36)
[2022-02-12] MEDS: INSULIN SLIDING SCALE (NOVOLOG) 1 VIAL SQ SCH ×4 (06:58→21:38)
[2022-02-12] MEDS: METOPROLOL TARTRATE 25 MG TABLET (FP) PO SCH ×2 (09:24→21:36)
[2022-02-12] MEDS: amLODIPine BESYLATE 10 MG TABLET (FP) PO SCH (09:24)
[2022-02-12] MEDS: LOSARTAN POTASSIUM 50 MG TABLET PO SCH (09:24)
[2022-02-12] MEDS: ASPIRIN 81 MG CHEWABLE TABLETS PO SCH (09:24)
[2022-02-12 13:18] LABS: HEMATOCRIT 41.5 % (32.4-45.2); MCH 30.8 pg (25.7-33.7); MCHC 33.6 g/dl (32.0-36.0); MEAN CELL VOLUME 91.6 fl (80-96); MEAN PLT VOLUME 10.1 fl (7.5-11.1); PLATELET COUNT 176 10^3/uL (134-434); RBC 4.53 M/mm3 (3.60-5.2); RDW 14.4 % (11.6-15.6); WHITE BLOOD COUNT 4.4 K/mm3 (4.0-10.0)
[2022-02-12 13:47] LABS: ALBUMIN 3.4 g/dl (3.4-5.0)
[2022-02-12 13:50] LABS: CREATININE 0.8 mg/dL (0.55-1.3)
[2022-02-12 13:51] LABS: TOT PROT 6.8 g/dl (6.4-8.2)
[2022-02-12] MEDS: ROSUVASTATIN CA 20 MG TABLET PO SCH (21:36)
[2022-02-12] MEDS: DORZOLAMIDE 2% HCL OPHTHALMIC SOLUTION 10 ML BOTTLE OU SCH (21:37)
[2022-02-12] MEDS: BRIMONIDINE TARTRATE 0.15% OPHTHALMIC 5 ML BOTTLE OU SCH (21:37)
[2022-02-12] MEDS: TIMOLOL 0.5% OPHTHALMIC SOL 5 ML BOTTLE OU SCH (21:37)
[2022-02-13] MEDS: AMPICILLIN NA/SULBACTAM NA 1.5 GM in SODIUM CHLORIDE 100 ML IVPB SCH ×2 (02:24→08:50)
[2022-02-13] MEDS ORDERED: LIDOCAINE 5% TOPICAL PATCH TP ONE (05:00)
[2022-02-13] MEDS: INSULIN SLIDING SCALE (NOVOLOG) 1 VIAL SQ SCH ×3 (07:22→16:39)
[2022-02-13 09:08] LABS: CALCIUM 9.3 mg/dL (8.5-10.1)
[2022-02-13] MEDS: amLODIPine BESYLATE 10 MG TABLET (FP) PO SCH (09:08)
[2022-02-13] MEDS: ASPIRIN 81 MG CHEWABLE TABLETS PO SCH (09:08)
[2022-02-13] MEDS: LOSARTAN POTASSIUM 50 MG TABLET PO SCH (09:08)
[2022-02-13] MEDS: METOPROLOL TARTRATE 25 MG TABLET (FP) PO SCH (09:08)
[2022-02-13 09:09] LABS: ALBUMIN 3.5 g/dl (3.4-5.0); BLOOD UREA NITROGEN 13.3 mg/dL (7-18)
[2022-02-13 09:12] LABS: CREATININE 0.7 mg/dL (0.55-1.3)
[2022-02-13 09:13] LABS: TOT PROT 6.9 g/dl (6.4-8.2)
[2022-02-13] MEDS: VANCOMYCIN/WATER FOR INJ (PEG) 1,000 MG/200 ML BAG IVPB SCH (11:13)
[2022-02-13] MEDS: DORZOLAMIDE 2% HCL OPHTHALMIC SOLUTION 10 ML BOTTLE OU SCH (11:14)
[2022-02-13] MEDS: BRIMONIDINE TARTRATE 0.15% OPHTHALMIC 5 ML BOTTLE OU SCH (11:15)
[2022-02-13] MEDS: TIMOLOL 0.5% OPHTHALMIC SOL 5 ML BOTTLE OU SCH (11:15)
[2022-02-13] MEDS ORDERED: INSULIN (NOVOLOG) ASPART 100 UNITS/ML 10ML VIAL ONE (11:40)
[2022-02-13] MEDS ORDERED: LIDOCAINE PATCH REMOVAL MC ONE (17:00)
[2022-02-13 20:26] VITALS: BP 139/96; PULSE 61; TEMP 97.9
[2022-02-13] MEDS ORDERED: CEPHALEXIN MONOHYDRATE 500 MG CAPSULE (UD) PO SCH (22:00)
== END 2022-02-13 20:00 | disposition home health service (06) | DRG 603 ==
LOC: JER 10:47 → JERBED 17:30 → J6S 18:53
PROVIDERS: ADMIT Internal Medicine; ATTEND Family Medicine
DX: L02.212 Cutaneous abscess of back [any part, except buttock and flank] (principal); J98.11 Atelectasis; N39.0 Urinary tract infection, site not specified; I10 Essential (primary) hypertension; G20 Parkinson's disease; E78.5 Hyperlipidemia, unspecified; H40.9 Unspecified glaucoma; E11.51 Type 2 diabetes mellitus with diabetic peripheral angiopathy without gangrene; M06.9 Rheumatoid arthritis, unspecified; R77.8 Other specified abnormalities of plasma proteins; E87.8 Other disorders of electrolyte and fluid balance, not elsewhere classified; I48.91 Unspecified atrial fibrillation; B35.1 Tinea unguium; E11.42 Type 2 diabetes mellitus with diabetic polyneuropathy; B96.4 Proteus (mirabilis) (morganii) as the cause of diseases classified elsewhere
CPT/HCPCS: 0241U-QW; 36415; 70491-TC; 71045-TC-FY; 80053; 81003; 82962; 84443; 84484; 85025; 85027; 87040; 87070; 87086; 87186; 87205; 93005; 93010; 93306-TC; 97116-GP; 97162-GP; 99285-25; Q9967

== ENCOUNTER 2022-08-24 12:36 | Observation (INO) | payer OTHER ==
[2022-08-24 13:46] LABS: BASO % 0.7 % (0-2.0); EOS % 1.1 % (0-4.5); HEMATOCRIT 39.9 % (32.4-45.2); HEMOGLOBIN 13.8 GM/dL (10.7-15.3); LYMPH % 31.3 % (8-40); MCHC 34.7 g/dl (32.0-36.0); MEAN CELL VOLUME 92.4 fl (80-96); MONO % 10.9 % (3.8-10.2); PLATELET COUNT 143 10^3/uL (134-434); RBC 4.32 M/mm3 (3.60-5.2); RDW 13.6 % (11.6-15.6); WHITE BLOOD COUNT 4.3 K/mm3 (4.0-10.0)
[2022-08-24 14:04] LABS: POTASSIUM 3.7 mmol/L (3.5-5.1)
[2022-08-24 14:06] LABS: CALCIUM 9.3 mg/dL (8.5-10.1)
[2022-08-24 14:07] LABS: ALBUMIN 3.6 g/dl (3.4-5.0); MAGNESIUM 2.1 mg/dL (1.8-2.4)
[2022-08-24 14:10] LABS: CREATININE 1.1 mg/dL (0.55-1.3); PHOSPHOROUS 3.3 mg/dL (2.5-4.9)
[2022-08-24 14:12] LABS: BILIRUBIN,TOTAL 2.9 mg/dL (0.2-1)
[2022-08-24] MEDS ORDERED: ASPIRIN 81 MG CHEWABLE TABLETS PO ONE (19:04)
[2022-08-24] MEDS ORDERED: ASPIRIN 81 MG CHEWABLE TABLETS ONE (19:50)
[2022-08-24] MEDS ORDERED: PATIENT'S OWN MEDICATION (NON-FORMULARY) (Dorzolamide Hcl/Timolol Maleat [Dorzolamide-Timo OU SCH (23:30)
[2022-08-25] MEDS: DORZOLAMIDE 2% HCL OPHTHALMIC SOLUTION 10 ML BOTTLE OU SCH ×3 (02:00→21:22)
[2022-08-25] MEDS: BRIMONIDINE TARTRATE 0.15% OPHTHALMIC 5 ML BOTTLE OU SCH ×3 (02:00→21:22)
[2022-08-25] MEDS: TIMOLOL 0.5% OPHTHALMIC SOL 5 ML BOTTLE OU SCH ×3 (02:00→21:22)
[2022-08-25] MEDS ORDERED: ACETAMINOPHEN 325 MG TABLET (FP) PO PRN (03:36)
[2022-08-25 06:20] VITALS: BMI 24.7
[2022-08-25 07:07] LABS: BASO % 0.6 % (0-2.0); EOS % 1.2 % (0-4.5); HEMATOCRIT 39.2 % (32.4-45.2); HEMOGLOBIN 13.6 GM/dL (10.7-15.3); LYMPH % 34.7 % (8-40); MCH 32.1 pg (25.7-33.7); MCHC 34.6 g/dl (32.0-36.0); MEAN CELL VOLUME 92.8 fl (80-96); MEAN PLT VOLUME 10.3 fl (7.5-11.1); MONO % 13.2 % (3.8-10.2); NEUT % 50.3 % (42.8-82.8); PLATELET COUNT 141 10^3/uL (134-434); RBC 4.22 M/mm3 (3.60-5.2); RDW 13.9 % (11.6-15.6); WHITE BLOOD COUNT 4.9 K/mm3 (4.0-10.0)
[2022-08-25 07:27] LABS: POTASSIUM 3.9 mmol/L (3.5-5.1)
[2022-08-25 07:35] LABS: CALCIUM 9.4 mg/dL (8.5-10.1)
[2022-08-25 07:36] LABS: ALBUMIN 3.4 g/dl (3.4-5.0); BLOOD UREA NITROGEN 23.8 mg/dL (7-18)
[2022-08-25 07:37] LABS: BILIRUBIN,TOTAL 3.2 mg/dL (0.2-1); TOT PROT 6.7 g/dl (6.4-8.2)
[2022-08-25 07:38] LABS: CREATININE 1.1 mg/dL (0.55-1.3)
[2022-08-25 08:50] LABS: EPI CELLS 23 /uL (0-25.1); HYALINE CASTS 0 /uL (0-3.1); URINE APPEARANCE CLEAR; URINE BACTERIA 433 /uL (0-1359); URINE BILIRUBIN NEGATIVE (NEGATIVE); URINE COLOR YELLOW; URINE GLUCOSE (UA) NEGATIVE (NEGATIVE); URINE KETONE NEGATIVE (NEGATIVE); URINE LEUK ESTERASE TRACE (NEGATIVE); URINE NITRITE NEGATIVE (NEGATIVE); URINE PROTEIN TRACE (NEGATIVE); URINE UROBILINOGEN 0.2 mg/dL (0.2-1.0); URINE WBC 34 /uL (0-25.8)
[2022-08-25 09:32] LABS: URINE RBC 37.2 /uL (0-23.9)
[2022-08-25] MEDS: ASPIRIN 81 MG CHEWABLE TABLETS PO SCH (10:43)
[2022-08-25] MEDS: ROSUVASTATIN CA 20 MG TABLET PO SCH (21:21)
[2022-08-26] MEDS ORDERED: REGADENOSON 0.4 MG/5 ML PRE-FILLED SYRINGE IVPUSH ONE ×2 (09:57→10:30)
[2022-08-26] MEDS: ASPIRIN 81 MG CHEWABLE TABLETS PO SCH (12:32)
[2022-08-26] MEDS: BRIMONIDINE TARTRATE 0.15% OPHTHALMIC 5 ML BOTTLE OU SCH ×2 (12:32→21:22)
[2022-08-26] MEDS: DORZOLAMIDE 2% HCL OPHTHALMIC SOLUTION 10 ML BOTTLE OU SCH ×2 (12:32→21:22)
[2022-08-26] MEDS: TIMOLOL 0.5% OPHTHALMIC SOL 5 ML BOTTLE OU SCH ×2 (12:32→21:22)
[2022-08-26] MEDS: ROSUVASTATIN CA 20 MG TABLET PO SCH (21:19)
[2022-08-27] MEDS: METOPROLOL TARTRATE 25 MG TABLET (FP) PO SCH ×2 (09:44→21:26)
[2022-08-27] MEDS: BRIMONIDINE TARTRATE 0.15% OPHTHALMIC 5 ML BOTTLE OU SCH ×2 (09:44→21:28)
[2022-08-27] MEDS: TIMOLOL 0.5% OPHTHALMIC SOL 5 ML BOTTLE OU SCH ×2 (09:44→21:28)
[2022-08-27] MEDS: LOSARTAN POTASSIUM 50 MG TABLET PO SCH (09:45)
[2022-08-27] MEDS: ASPIRIN 81 MG CHEWABLE TABLETS PO SCH (09:45)
[2022-08-27] MEDS: DORZOLAMIDE 2% HCL OPHTHALMIC SOLUTION 10 ML BOTTLE OU SCH ×2 (09:45→21:28)
[2022-08-27] MEDS: amLODIPine BESYLATE 5 MG TABLET (FP) PO SCH (09:45)
[2022-08-27] MEDS ORDERED: amLODIPine BESYLATE 10 MG TABLET (FP) PO SCH (10:00)
[2022-08-27] MEDS: ROSUVASTATIN CA 20 MG TABLET PO SCH (21:26)
[2022-08-28] MEDS: amLODIPine BESYLATE 5 MG TABLET (FP) PO SCH (09:24)
[2022-08-28] MEDS: LOSARTAN POTASSIUM 50 MG TABLET PO SCH (09:24)
[2022-08-28] MEDS: METOPROLOL TARTRATE 25 MG TABLET (FP) PO SCH ×2 (09:24→21:23)
[2022-08-28] MEDS: ASPIRIN 81 MG CHEWABLE TABLETS PO SCH (09:24)
[2022-08-28] MEDS: TIMOLOL 0.5% OPHTHALMIC SOL 5 ML BOTTLE OU SCH ×2 (09:24→21:24)
[2022-08-28] MEDS: DORZOLAMIDE 2% HCL OPHTHALMIC SOLUTION 10 ML BOTTLE OU SCH ×2 (09:24→21:25)
[2022-08-28] MEDS: BRIMONIDINE TARTRATE 0.15% OPHTHALMIC 5 ML BOTTLE OU SCH ×2 (09:38→21:24)
[2022-08-28] MEDS: ROSUVASTATIN CA 20 MG TABLET PO SCH (21:23)
[2022-08-29] MEDS: TIMOLOL 0.5% OPHTHALMIC SOL 5 ML BOTTLE OU SCH (09:14)
[2022-08-29] MEDS: BRIMONIDINE TARTRATE 0.15% OPHTHALMIC 5 ML BOTTLE OU SCH (09:15)
[2022-08-29] MEDS: ASPIRIN 81 MG CHEWABLE TABLETS PO SCH (09:15)
[2022-08-29] MEDS: LOSARTAN POTASSIUM 50 MG TABLET PO SCH (09:15)
[2022-08-29] MEDS: amLODIPine BESYLATE 5 MG TABLET (FP) PO SCH (09:15)
[2022-08-29] MEDS: DORZOLAMIDE 2% HCL OPHTHALMIC SOLUTION 10 ML BOTTLE OU SCH (09:15)
[2022-08-29] MEDS: METOPROLOL TARTRATE 25 MG TABLET (FP) PO SCH (09:17)
[2022-08-29 09:19] VITALS: BP 156/104; PULSE 55; RESP 18; TEMP 99.1
[2022-08-29] MEDS ORDERED: amLODIPine BESYLATE 5 MG TABLET (FP) PO ONE (10:58)
== END 2022-08-29 13:25 | disposition home or self-care (01) ==
LOC: JER 12:36 → JERBED 15:13 → J4W 23:56
PROVIDERS: ADMIT Internal Medicine; ATTEND Family Medicine
PROC: 3E033GC Introduction of Other Therapeutic Substance into Peripheral Vein, Percutaneous Approach (ICD-10-PCS; principal; 2022-08-24)
DX: G20 Parkinson's disease (principal); I73.9 Peripheral vascular disease, unspecified; I10 Essential (primary) hypertension; E78.5 Hyperlipidemia, unspecified; E11.9 Type 2 diabetes mellitus without complications; H40.9 Unspecified glaucoma; R77.8 Other specified abnormalities of plasma proteins
CPT/HCPCS: 0241U-QW; 36415; 70450-TC; 71045-TC-FY; 78452-TC; 80053; 80061; 81003; 82962; 83036; 83735; 84100; 84443; 84484; 85025; 87086; 93005; 93010; 93017; 93306-TC; 93880-TC; 95816; 96374; 97116-GP; 97162-GP; 99285-25; A9502; G0378; J2785

== ENCOUNTER 2023-04-29 15:08 | Emergency (ER) | payer OTHER ==
[2023-04-29 16:06] VITALS: TEMP 97.6; BMI 31.3
[2023-04-29 17:30] LABS: BASO % 0.8 % (0-2.0); EOS % 1.6 % (0-4.5); HEMATOCRIT 44.6 % (32.4-45.2); HEMOGLOBIN 14.7 GM/dL (10.7-15.3); MCH 31.1 pg (25.7-33.7); MCHC 32.9 g/dl (32.0-36.0); MEAN CELL VOLUME 94.5 fl (80-96); MEAN PLT VOLUME 10.4 fl (7.5-11.1); MONO % 12.2 % (3.8-10.2); NEUT % 42.4 % (42.8-82.8); PLATELET COUNT 166 10^3/uL (134-434); RBC 4.72 M/mm3 (3.60-5.2); RDW 14.4 % (11.6-15.6); WHITE BLOOD COUNT 5.5 K/mm3 (4.0-10.0)
[2023-04-29 17:32] LABS: INR 1.05 (0.83-1.09); PROTHROMBIN TIME (PATIENT) 12.2 SEC (9.7-13.0)
[2023-04-29 17:34] LABS: ACTIVATED PTT 31.3 SECONDS (25.2-36.5)
[2023-04-29 17:36] LABS: POTASSIUM 3.7 mmol/L (3.5-5.1)
[2023-04-29 17:39] LABS: CALCIUM 8.9 mg/dL (8.5-10.1)
[2023-04-29 17:40] LABS: ALBUMIN 3.6 g/dl (3.4-5.0); BLOOD UREA NITROGEN 14.7 mg/dL (7-18)
[2023-04-29 17:43] LABS: CREATININE 0.9 mg/dL (0.55-1.3)
[2023-04-29 17:44] LABS: TOT PROT 7.3 g/dl (6.4-8.2)
[2023-04-29 17:48] LABS: N-TERMINAL BNP 53.1 pg/ml (5-125)
[2023-04-29 18:16] LABS: BILIRUBIN,DIRECT 0.5 mg/dL (0.0-0.2)
[2023-04-29] MEDS ORDERED: LOSARTAN POTASSIUM 50 MG TABLET PO ONE (19:29)
[2023-04-29] MEDS ORDERED: LOSARTAN POTASSIUM 50 MG TABLET ONE (19:47)
[2023-04-29 20:01] VITALS: BP 130/88; PULSE 63; RESP 16
== END 2023-04-29 21:13 | disposition home or self-care (01) ==
LOC: JER 15:08
DX: R00.1 Bradycardia, unspecified (principal); R60.0 Localized edema; R53.1 Weakness; Z20.822 Contact with and (suspected) exposure to COVID-19
CPT/HCPCS: 0241U-QW; 36415; 71045-TC-FY; 80053; 82248; 83735; 83880; 84443; 84484; 85025; 85610; 85730; 93005; 93010; 99285-25

== ENCOUNTER 2023-05-02 11:07 | Inpatient (IN) | payer OTHER ==
[2023-05-02 11:31] VITALS: BMI 29.2
[2023-05-02] MEDS ORDERED: SODIUM CHLORIDE 0.9% 500 ML INFUS.BAG IV ONE (12:07)
[2023-05-02] MEDS ORDERED: ACETAMINOPHEN 1000 MG/100 ML BAG IVPB ONE (12:07)
[2023-05-02] MEDS ORDERED: ACETAMINOPHEN INJECTION 100 ML IVPB ONE (12:20)
[2023-05-02 12:28] LABS: BASO % 0.5 % (0-2.0); EOS % 0.2 % (0-4.5); HEMATOCRIT 43.2 % (32.4-45.2); HEMOGLOBIN 14.5 GM/dL (10.7-15.3); LYMPH % 16.2 % (8-40); MCH 31.3 pg (25.7-33.7); MCHC 33.5 g/dl (32.0-36.0); MEAN CELL VOLUME 93.3 fl (80-96); MEAN PLT VOLUME 10.4 fl (7.5-11.1); MONO % 9.5 % (3.8-10.2); NEUT % 73.6 % (42.8-82.8); PLATELET COUNT 143 10^3/uL (134-434); RBC 4.63 M/mm3 (3.60-5.2); RDW 13.8 % (11.6-15.6); WHITE BLOOD COUNT 6.7 K/mm3 (4.0-10.0)
[2023-05-02 12:42] LABS: POTASSIUM 3.6 mmol/L (3.5-5.1)
[2023-05-02 12:44] LABS: ALBUMIN 3.4 g/dl (3.4-5.0); CALCIUM 8.8 mg/dL (8.5-10.1); MAGNESIUM 1.8 mg/dL (1.8-2.4)
[2023-05-02 12:45] LABS: BLOOD UREA NITROGEN 16.7 mg/dL (7-18)
[2023-05-02 12:49] LABS: BILIRUBIN,TOTAL 2.8 mg/dL (0.2-1); TOT PROT 7.1 g/dl (6.4-8.2)
[2023-05-02] MEDS ORDERED: REMDESIVIR 200 MG in SODIUM CHLORIDE 250 ML IVPB ONE (17:39)
[2023-05-02] MEDS: DEXTROSE 5%-0.45% SALINE 1,000 ML IV SCH (19:00)
[2023-05-02] MEDS ORDERED: METOPROLOL TARTRATE 25 MG TABLET (FP) ONE (21:43)
[2023-05-02] MEDS ORDERED: ROSUVASTATIN CA 20 MG TABLET ONE (21:43)
[2023-05-02] MEDS: BRIMONIDINE TARTRATE 0.15% OPHTHALMIC 5 ML BOTTLE OU SCH (21:55)
[2023-05-02] MEDS: METOPROLOL TARTRATE 25 MG TABLET (FP) PO SCH (21:56)
[2023-05-02] MEDS: ROSUVASTATIN CA 20 MG TABLET PO SCH (21:56)
[2023-05-02] MEDS: TIMOLOL 0.5% OPHTHALMIC SOL 5 ML BOTTLE OU SCH (21:56)
[2023-05-02] MEDS: DORZOLAMIDE 2% HCL OPHTHALMIC SOLUTION 10 ML BOTTLE OU SCH (21:57)
[2023-05-02] MEDS ORDERED: PATIENT'S OWN MEDICATION (NON-FORMULARY) (Dorzolamide Hcl/Timolol Maleat [Dorzolamide-Timo OU SCH (22:00)
[2023-05-03 07:56] LABS: BASO % 0.7 % (0-2.0); EOS % 0.3 % (0-4.5); HEMATOCRIT 43.1 % (32.4-45.2); HEMOGLOBIN 14.3 GM/dL (10.7-15.3); LYMPH % 28.9 % (8-40); MCH 31.3 pg (25.7-33.7); MCHC 33.1 g/dl (32.0-36.0); MEAN CELL VOLUME 94.6 fl (80-96); MEAN PLT VOLUME 10.9 fl (7.5-11.1); MONO % 10.7 % (3.8-10.2); NEUT % 59.4 % (42.8-82.8); PLATELET COUNT 132 10^3/uL (134-434); RBC 4.56 M/mm3 (3.60-5.2); WHITE BLOOD COUNT 4.8 K/mm3 (4.0-10.0)
[2023-05-03 08:08] LABS: POTASSIUM 3.7 mmol/L (3.5-5.1)
[2023-05-03 08:12] LABS: ALBUMIN 3.5 g/dl (3.4-5.0); CALCIUM 9.3 mg/dL (8.5-10.1)
[2023-05-03 08:13] LABS: BLOOD UREA NITROGEN 15.8 mg/dL (7-18)
[2023-05-03 08:16] LABS: CREATININE 0.8 mg/dL (0.55-1.3)
[2023-05-03 08:17] LABS: BILIRUBIN,TOTAL 2.7 mg/dL (0.2-1); TOT PROT 7.1 g/dl (6.4-8.2)
[2023-05-03] MEDS: LOSARTAN POTASSIUM 50 MG TABLET PO SCH (09:35)
[2023-05-03] MEDS: ENOXAPARIN NA (PORCINE) 40 MG/0.4 ML DISP.SYRIN SQ SCH (09:35)
[2023-05-03] MEDS: ASPIRIN 81 MG CHEWABLE TABLETS PO SCH (09:35)
[2023-05-03] MEDS: METOPROLOL TARTRATE 25 MG TABLET (FP) PO SCH ×2 (09:35→21:58)
[2023-05-03] MEDS: amLODIPine BESYLATE 5 MG TABLET (FP) PO SCH (09:35)
[2023-05-03] MEDS: TIMOLOL 0.5% OPHTHALMIC SOL 5 ML BOTTLE OU SCH ×2 (09:47→22:01)
[2023-05-03] MEDS: BRIMONIDINE TARTRATE 0.15% OPHTHALMIC 5 ML BOTTLE OU SCH ×2 (09:47→22:00)
[2023-05-03] MEDS: DORZOLAMIDE 2% HCL OPHTHALMIC SOLUTION 10 ML BOTTLE OU SCH ×2 (09:47→22:05)
[2023-05-03] MEDS: DEXTROSE 5%-0.45% SALINE 1,000 ML IV SCH (17:54)
[2023-05-03] MEDS ORDERED: REMDESIVIR 100 MG in SODIUM CHLORIDE 250 ML IVPB ONE (19:00)
[2023-05-03] MEDS: ROSUVASTATIN CA 20 MG TABLET PO SCH (21:58)
[2023-05-04] MEDS: ASPIRIN 81 MG CHEWABLE TABLETS PO SCH (10:33)
[2023-05-04] MEDS: amLODIPine BESYLATE 5 MG TABLET (FP) PO SCH (10:33)
[2023-05-04] MEDS: BRIMONIDINE TARTRATE 0.15% OPHTHALMIC 5 ML BOTTLE OU SCH ×2 (10:33→21:50)
[2023-05-04] MEDS: LOSARTAN POTASSIUM 50 MG TABLET PO SCH (10:33)
[2023-05-04] MEDS: ENOXAPARIN NA (PORCINE) 40 MG/0.4 ML DISP.SYRIN SQ SCH (10:33)
[2023-05-04] MEDS: METOPROLOL TARTRATE 25 MG TABLET (FP) PO SCH ×2 (10:33→21:48)
[2023-05-04] MEDS: TIMOLOL 0.5% OPHTHALMIC SOL 5 ML BOTTLE OU SCH ×2 (10:34→21:50)
[2023-05-04] MEDS: REMDESIVIR 100 MG in SODIUM CHLORIDE 250 ML IVPB SCH (10:37)
[2023-05-04] MEDS: DORZOLAMIDE 2% HCL OPHTHALMIC SOLUTION 10 ML BOTTLE OU SCH ×2 (10:37→21:49)
[2023-05-04] MEDS: DEXAMETHASONE SOD PHOSPHATE 10 MG/1 ML VIAL IVPUSH SCH (12:41)
[2023-05-04] MEDS ORDERED: LOSARTAN POTASSIUM 50 MG TABLET PO ONE (16:22)
[2023-05-04] MEDS: DEXTROSE 5%-0.45% SALINE 1,000 ML IV SCH (16:53)
[2023-05-04] MEDS: ROSUVASTATIN CA 20 MG TABLET PO SCH (21:48)
[2023-05-05] MEDS: ENOXAPARIN NA (PORCINE) 40 MG/0.4 ML DISP.SYRIN SQ SCH (10:37)
[2023-05-05] MEDS: METOPROLOL TARTRATE 25 MG TABLET (FP) PO SCH ×2 (10:37→22:18)
[2023-05-05] MEDS: LOSARTAN POTASSIUM 50 MG TABLET PO SCH (10:37)
[2023-05-05] MEDS: DEXAMETHASONE SOD PHOSPHATE 10 MG/1 ML VIAL IVPUSH SCH (10:38)
[2023-05-05] MEDS: amLODIPine BESYLATE 5 MG TABLET (FP) PO SCH (10:38)
[2023-05-05] MEDS: REMDESIVIR 100 MG in SODIUM CHLORIDE 250 ML IVPB SCH (10:38)
[2023-05-05] MEDS: ASPIRIN 81 MG CHEWABLE TABLETS PO SCH (10:38)
[2023-05-05] MEDS: BRIMONIDINE TARTRATE 0.15% OPHTHALMIC 5 ML BOTTLE OU SCH ×2 (11:08→22:18)
[2023-05-05] MEDS: TIMOLOL 0.5% OPHTHALMIC SOL 5 ML BOTTLE OU SCH ×2 (11:08→22:19)
[2023-05-05] MEDS: DORZOLAMIDE 2% HCL OPHTHALMIC SOLUTION 10 ML BOTTLE OU SCH ×2 (11:08→22:19)
[2023-05-05 11:12] VITALS: RESP 18
[2023-05-05] MEDS: ROSUVASTATIN CA 20 MG TABLET PO SCH (22:18)
[2023-05-06 05:39] VITALS: BP 146/92; PULSE 55; TEMP 98
[2023-05-06] MEDS: ASPIRIN 81 MG CHEWABLE TABLETS PO SCH (09:11)
[2023-05-06] MEDS: amLODIPine BESYLATE 5 MG TABLET (FP) PO SCH (09:12)
[2023-05-06] MEDS: LOSARTAN POTASSIUM 50 MG TABLET PO SCH (09:12)
[2023-05-06] MEDS: METOPROLOL TARTRATE 25 MG TABLET (FP) PO SCH (09:12)
[2023-05-06] MEDS: TIMOLOL 0.5% OPHTHALMIC SOL 5 ML BOTTLE OU SCH (09:14)
[2023-05-06] MEDS: BRIMONIDINE TARTRATE 0.15% OPHTHALMIC 5 ML BOTTLE OU SCH (09:14)
[2023-05-06] MEDS: DORZOLAMIDE 2% HCL OPHTHALMIC SOLUTION 10 ML BOTTLE OU SCH (09:14)
[2023-05-06] MEDS: ENOXAPARIN NA (PORCINE) 40 MG/0.4 ML DISP.SYRIN SQ SCH (12:23)
== END 2023-05-06 11:14 | disposition home health service (06) | DRG 178 ==
LOC: JER 11:07 → JERBED 15:13 → OBSVTOIN 17:36 → J4S 05-03 15:13
PROVIDERS: ADMIT Family Medicine; ATTEND Family Medicine
PROC: XW033E5 Introduction of Remdesivir Anti-infective into Peripheral Vein, Percutaneous Approach, New Technology Group 5 (ICD-10-PCS; principal; 2023-05-02)
DX: U07.1 COVID-19 (principal); I24.89 Other forms of acute ischemic heart disease; I10 Essential (primary) hypertension; E78.5 Hyperlipidemia, unspecified; E11.51 Type 2 diabetes mellitus with diabetic peripheral angiopathy without gangrene; G20.A1 Parkinson's disease without dyskinesia, without mention of fluctuations; R77.8 Other specified abnormalities of plasma proteins; R53.1 Weakness; H40.9 Unspecified glaucoma
CPT/HCPCS: 0241U-QW; 36415; 71045-TC-FY; 80053; 82962; 83735; 84484; 85025; 86140; 93005; 93010; 93306-TC; 97116-GP; 97161-GP; 99285-25; G0378; J0248; J1100

== ENCOUNTER 2024-09-15 11:22 | Inpatient (IN) | payer OTHER ==
[2024-09-15 12:28] LABS: ABSOLUTE IMMATURE GRANULOCYTES 0.01 x10^3/uL (0.0-0.031); BASOPHILS # 0.04 x10^3/uL (0.01-0.08); EOSINOPHIL % 1.4 % (0.7-5.8); EOSINOPHILS # 0.06 x10^3/uL (0.04-0.36); HEMATOCRIT 44.7 % (34.1-44.9); HEMOGLOBIN 14.7 g/dL (11.2-15.7); MCHC 32.9 g/dl (32.2-35.5); MEAN CELL VOLUME 94.9 fl (79.4-94.8); MEAN PLT VOLUME 12.2 fl (9.4-12.3); MONOCYTE # 0.49 x10^3/uL (0.24-0.86); MONOCYTE % 11.1 % (4.7-12.5); PLATELET COUNT 164 x10^3/uL (182-369); RDW 13.1 % (12.4-16.6)
[2024-09-15 12:36] LABS: INR 1.08 (0.83-1.09); PROTHROMBIN TIME (PATIENT) 11.9 SEC (9.7-13.0)
[2024-09-15 12:38] LABS: ACTIVATED PTT 30.3 SECONDS (25.2-36.5)
[2024-09-15 12:56] LABS: POTASSIUM 3.8 mmol/L (3.5-5.1)
[2024-09-15 13:00] LABS: ALBUMIN 3.4 g/dl (3.4-5.0)
[2024-09-15 13:01] LABS: BLOOD UREA NITROGEN 20.6 mg/dL (7-18)
[2024-09-15 13:03] LABS: PHOSPHOROUS 3.7 mg/dL (2.5-4.9)
[2024-09-15 13:04] LABS: BILIRUBIN,TOTAL 2.1 mg/dL (0.2-1); TOT PROT 6.6 g/dl (6.4-8.2)
[2024-09-15 13:28] LABS: CALCIUM 10.1 mg/dL (8.5-10.1); MAGNESIUM 2.1 mg/dL (1.8-2.4)
[2024-09-15 14:48] LABS: PH,URINE 5.5 (5.0-8.0); URINE APPEARANCE Clear; URINE BILIRUBIN Negative (NEGATIVE); URINE COLOR Yellow; URINE GLUCOSE (UA) Negative (NEGATIVE); URINE KETONE Negative (NEGATIVE); URINE LEUK ESTERASE Trace (NEGATIVE); URINE NITRITE Negative (NEGATIVE); URINE PROTEIN 1+ (NEGATIVE); URINE UROBILINOGEN 0.2 mg/dL (0.2-1.0)
[2024-09-15 14:50] LABS: EPI CELLS 72 /uL (0-25.1); HYALINE CASTS 4 /uL (0-3.1); URINE RBC 30 /uL (0-23.9); URINE WBC 252 /uL (0-25.8)
[2024-09-15 14:51] LABS: URINE BACTERIA 1453 /uL (0-1359)
[2024-09-15 14:54] LABS: YEAST FEW (NEGATIVE)
[2024-09-15] MEDS ORDERED: CEFTRIAXONE 1 G/50 ML PREMIX 50 ML IVPB ONE (14:59)
[2024-09-15] MEDS: CEFTRIAXONE 1,000 MG in DEXTROSE 5%-WATER - 50 ML IVPB ONE (15:05)
[2024-09-15] MEDS ORDERED: KETOROLAC TROMETHAMINE 15 MG/ML VIAL ONE (15:18)
[2024-09-15] MEDS: KETOROLAC TROMETHAMINE 15 MG/ML VIAL IVPUSH ONE (15:29)
[2024-09-15 19:12] VITALS: BMI 29.2
[2024-09-15] MEDS: HEPARIN NA (PORCINE) 5,000 UNITS/ML 1ML VIAL SQ SCH (21:22)
[2024-09-15] MEDS: METOPROLOL TARTRATE 25 MG TABLET (FP) PO SCH (21:22)
[2024-09-15] MEDS: ROSUVASTATIN CA 20 MG TABLET PO SCH (21:22)
[2024-09-15] MEDS: INSULIN (NOVOLOG) ASPART 100 UNITS/ML 10ML VIAL SQ SCH (21:23)
[2024-09-15] MEDS: DORZOLAMIDE HCL/TIMOLOL OPHTHALMIC SOLUTION 10 ML BOTTLE OU SCH (21:55)
[2024-09-15] MEDS: BRIMONIDINE TARTRATE 0.15% OPHTHALMIC 5 ML BOTTLE OU SCH (21:55)
[2024-09-16 07:00] LABS: POTASSIUM 3.8 mmol/L (3.5-5.1)
[2024-09-16 07:05] LABS: ALBUMIN 3.5 g/dl (3.4-5.0); BLOOD UREA NITROGEN 20.9 mg/dL (7-18); CALCIUM 9.4 mg/dL (8.5-10.1); MAGNESIUM 2.1 mg/dL (1.8-2.4)
[2024-09-16 07:09] LABS: BILIRUBIN,TOTAL 2.6 mg/dL (0.2-1)
[2024-09-16 07:10] LABS: TOT PROT 6.6 g/dl (6.4-8.2)
[2024-09-16 07:12] LABS: ABSOLUTE IMMATURE GRANULOCYTES 0.01 x10^3/uL (0.0-0.031); BASOPHILS # 0.04 x10^3/uL (0.01-0.08); EOSINOPHIL % 1.7 % (0.7-5.8); EOSINOPHILS # 0.09 x10^3/uL (0.04-0.36); HEMATOCRIT 43.5 % (34.1-44.9); HEMOGLOBIN 14.2 g/dL (11.2-15.7); MCHC 32.6 g/dl (32.2-35.5); MEAN CELL VOLUME 95.4 fl (79.4-94.8); MEAN PLT VOLUME 12.5 fl (9.4-12.3); MONOCYTE # 0.64 x10^3/uL (0.24-0.86); MONOCYTE % 12.3 % (4.7-12.5); PLATELET COUNT 156 x10^3/uL (182-369); RDW 13.2 % (12.4-16.6)
[2024-09-16] MEDS: LOSARTAN POTASSIUM 50 MG TABLET PO SCH (11:01)
[2024-09-16] MEDS: amLODIPine BESYLATE 5 MG TABLET (FP) PO SCH (11:02)
[2024-09-16] MEDS: ASPIRIN 81 MG CHEWABLE TABLETS PO SCH (11:02)
[2024-09-16] MEDS: CEFTRIAXONE 1 G/50 ML PREMIX 50 ML IVPB SCH (11:20)
[2024-09-16] MEDS: ACETAMINOPHEN 325 MG TABLET (FP) PO PRN (12:57)
[2024-09-17] MEDS: CEFTRIAXONE 1 GM in DEXTROSE 5%-WATER - 50 ML IVPB SCH (11:03)
[2024-09-18] MEDS: POLYETHYLENE GLYCOL (HEALTHYLAX) 3350 17 GM PACKET PO SCH (11:03)
[2024-09-18] MEDS: CARBIDOPA/LEVODOPA 25/100 TABLET (FP) PO SCH (17:22)
[2024-09-19] MEDS ORDERED: INSULIN ASPART SLIDING SCALE (NOVOLOG) 1 VIAL SQ ONE (06:57)
[2024-09-19 19:12] VITALS: BP 135/91; PULSE 56; RESP 17; TEMP 98.4
== END 2024-09-19 20:51 | disposition home or self-care (01) | DRG 690 ==
LOC: JER 11:22 → JERBED 14:56 → J4S 17:44
PROVIDERS: ADMIT Family Medicine; ATTEND Family Medicine
DX: N39.0 Urinary tract infection, site not specified (principal); E11.51 Type 2 diabetes mellitus with diabetic peripheral angiopathy without gangrene; I10 Essential (primary) hypertension; G20.A1 Parkinson's disease without dyskinesia, without mention of fluctuations; H40.9 Unspecified glaucoma; E78.5 Hyperlipidemia, unspecified; D25.9 Leiomyoma of uterus, unspecified
CPT/HCPCS: 0241U-QW; 36415; 70450-TC; 71045-TC-FY; 74177-TC; 80053; 80061; 81003; 82550; 82962; 83036; 83605; 83735; 84100; 84439; 84443; 84484; 85025; 85610; 85730; 86850; 86900; 86901; 87086; 93005; 93010; 93306-TC; 99285-25; Q9967

== ENCOUNTER 2024-09-27 20:52 | Observation (INO) | payer OTHER ==
[2024-09-27 23:23] LABS: ABSOLUTE IMMATURE GRANULOCYTES 0.01 x10^3/uL (0.0-0.031); BASOPHILS # 0.03 x10^3/uL (0.01-0.08); EOSINOPHIL % 1.6 % (0.7-5.8); EOSINOPHILS # 0.08 x10^3/uL (0.04-0.36); HEMATOCRIT 43.7 % (34.1-44.9); HEMOGLOBIN 14.7 g/dL (11.2-15.7); MCHC 33.6 g/dl (32.2-35.5); MEAN CELL VOLUME 94.6 fl (79.4-94.8); MEAN PLT VOLUME 11.8 fl (9.4-12.3); MONOCYTE # 0.53 x10^3/uL (0.24-0.86); MONOCYTE % 10.6 % (4.7-12.5); PLATELET COUNT 188 x10^3/uL (182-369); RDW 13.2 % (12.4-16.6)
[2024-09-27 23:30] LABS: INR 1.11 (0.83-1.09); PROTHROMBIN TIME (PATIENT) 12.2 SEC (9.7-13.0)
[2024-09-27 23:32] LABS: ACTIVATED PTT 31.3 SECONDS (25.2-36.5)
[2024-09-27 23:51] LABS: POTASSIUM 3.8 mmol/L (3.5-5.1)
[2024-09-27 23:54] LABS: CALCIUM 9.7 mg/dL (8.5-10.1)
[2024-09-27 23:55] LABS: ALBUMIN 3.7 g/dl (3.4-5.0); BLOOD UREA NITROGEN 12.6 mg/dL (7-18)
[2024-09-27 23:57] LABS: CREATININE 0.9 mg/dL (0.55-1.3)
[2024-09-27 23:59] LABS: BILIRUBIN,TOTAL 2.1 mg/dL (0.2-1)
[2024-09-28] LABS: TOT PROT 6.9 g/dl (6.4-8.2)
[2024-09-28 01:29] VITALS: RESP 18
[2024-09-28] MEDS: SODIUM CHLORIDE 0.9% 500 ML INFUS.BAG IV ONE (03:55)
[2024-09-28] MEDS ORDERED: DOCUSATE SODIUM 100 MG CAPSULE (FP) PO PRN (04:19)
[2024-09-28] MEDS ORDERED: ACETAMINOPHEN 500 MG TABLET (FP) PO PRN (04:25)
[2024-09-28 04:48] LABS: URINE APPEARANCE CLEAR; URINE BILIRUBIN NEGATIVE (NEGATIVE); URINE COLOR YELLOW; URINE GLUCOSE (UA) NEGATIVE (NEGATIVE); URINE KETONE TRACE (NEGATIVE); URINE LEUK ESTERASE NEGATIVE (NEGATIVE); URINE NITRITE NEGATIVE (NEGATIVE); URINE PROTEIN NEGATIVE (NEGATIVE)
[2024-09-28] MEDS: INSULIN ASPART SLIDING SCALE (NOVOLOG) 1 VIAL SQ SCH (06:31)
[2024-09-28 06:58] VITALS: BMI 31.9
[2024-09-28 08:34] LABS: ABSOLUTE IMMATURE GRANULOCYTES 0.01 x10^3/uL (0.0-0.031); BASOPHILS # 0.03 x10^3/uL (0.01-0.08); EOSINOPHIL % 1.3 % (0.7-5.8); EOSINOPHILS # 0.06 x10^3/uL (0.04-0.36); HEMATOCRIT 43.7 % (34.1-44.9); HEMOGLOBIN 14.6 g/dL (11.2-15.7); MCHC 33.4 g/dl (32.2-35.5); MEAN CELL VOLUME 95.4 fl (79.4-94.8); MEAN PLT VOLUME 11.8 fl (9.4-12.3); MONOCYTE # 0.48 x10^3/uL (0.24-0.86); MONOCYTE % 10.3 % (4.7-12.5); PLATELET COUNT 157 x10^3/uL (182-369); RDW 13.1 % (12.4-16.6)
[2024-09-28 09:55] LABS: POTASSIUM 3.6 mmol/L (3.5-5.1)
[2024-09-28 09:57] LABS: BLOOD UREA NITROGEN 12.9 mg/dL (7-18)
[2024-09-28 09:59] LABS: CALCIUM 9.5 mg/dL (8.5-10.1)
[2024-09-28 10:02] LABS: CREATININE 0.8 mg/dL (0.55-1.3)
[2024-09-28] MEDS: amLODIPine BESYLATE 5 MG TABLET (FP) PO SCH (11:06)
[2024-09-28] MEDS: ASPIRIN 81 MG CHEWABLE TABLETS PO SCH (11:06)
[2024-09-28] MEDS: BRIMONIDINE TARTRATE 0.15% OPHTHALMIC 5 ML BOTTLE OU SCH (11:06)
[2024-09-28] MEDS: LOSARTAN POTASSIUM 50 MG TABLET PO SCH (11:06)
[2024-09-28] MEDS: DORZOLAMIDE 2% HCL OPHTHALMIC SOLUTION 10 ML BOTTLE OU SCH (11:06)
[2024-09-28] MEDS: METOPROLOL TARTRATE 25 MG TABLET (FP) PO SCH (11:06)
[2024-09-28] MEDS: ROSUVASTATIN CA 20 MG TABLET PO SCH (21:41)
[2024-09-29 17:32] VITALS: BP 129/78; PULSE 55; TEMP 98.2
== END 2024-09-29 18:35 ==
LOC: JER 20:52 → JERBED 09-28 04:17 → J6S 09-28 05:51
PROVIDERS: ADMIT Family Medicine; ATTEND Family Medicine
PROC: 3E0337Z Introduction of Electrolytic and Water Balance Substance into Peripheral Vein, Percutaneous Approach (ICD-10-PCS; principal; 2024-09-28)
DX: R53.1 Weakness (principal); R77.8 Other specified abnormalities of plasma proteins; G20.A1 Parkinson's disease without dyskinesia, without mention of fluctuations; E78.5 Hyperlipidemia, unspecified; G89.29 Other chronic pain; M25.561 Pain in right knee; I10 Essential (primary) hypertension; E11.9 Type 2 diabetes mellitus without complications
CPT/HCPCS: 0241U-QW; 36415; 80048; 80053; 81003; 82550; 82553; 82962; 83735; 84484; 85025; 85610; 85730; 86850; 86900; 86901; 87086; 93005; 93010; 97116-GP; 97162-GP; 99285-25; G0378